=== PATIENT | female | born 2000 | race Two or more races ===

== ENCOUNTER 2025-05-31 23:29 | Emergency (ER) | payer OTHER ==
[~2025-05-31] VITALS: Ht 167.6 cm; Wt 78.0 kg
[2025-06-01] MEDS ORDERED: METHYLPREDNISOLONE SOD SUCC 125 MG VIAL IV ONE (00:45)
[2025-06-01] MEDS ORDERED: FAMOTIDINE/PF 20 MG in 0.9 % SODIUM CHLORIDE 8 ML IV PUSH ONE (00:45)
[2025-06-01] MEDS ORDERED: FAMOTIDINE/PF 20 MG/2 ML VIAL ONE ×2 (00:46→01:20)
[2025-06-01] MEDS ORDERED: METHYLPREDNISOLONE SOD SUCC 125 MG VIAL ONE (00:46)
[2025-06-01] MEDS ORDERED: DIPHENHYDRAMINE HCL 50 MG/ML VIAL 1ML ONE (00:46)
[2025-06-01] MEDS ORDERED: 0.9 % SODIUM CHLORIDE 1,000 ML IV ONE (01:00)
[2025-06-01] MEDS ORDERED: DIPHENHYDRAMINE HCL 50 MG/ML VIAL 1ML IV ONE (01:00)
[2025-06-01] MEDS ORDERED: FAMOTIDINE/PF 20 MG/2 ML VIAL IV PUSH STA (01:28)
[2025-06-01 01:35] LABS: BASO % 0.2 % (0.1-1.2); EOS # 0.00 (0.04-0.54); EOS % 0.0 % (0.7-7.0); LYMPH # 2.24 (1.18-3.74); LYMPH % 12.2 % (19.3-53.1); MEAN PLATELET VOLUME 11.30 fl (9.4-12.4); MONO # 0.76 (0.24-0.82); MONO % 4.2 % (4.7-12.5); NEUT # 15.21 (1.56-6.13); NEUT % 83.0 % (34.0-71.1); RED CELL DISTRIBUTION WIDTH 12.7 % (11.6-14.4)
[2025-06-01 01:52] LABS: ALT/SGPT 31.0 U/L (12-78); AST/SGOT 9.0 U/L (15-37); BILIRUBIN TOTAL 0.33 mg/dL (0.3-1.2); BUN CREA RATIO 22.0 (7.0-25.0); CREATININE SERUM 0.94 mg/dL (0.55-1.02); GFR 72.55; GLOBULINA 3.4 G/DL (2.4-3.5); GLUCOSE FASTING 94.0 mg/dL (65-100); OSMOLALITY SERUM 291.0 MOSM/KG (275-295)
[2025-06-01] MEDS ORDERED: ZYRTEC10 M3 PO (06:07)
[2025-06-01] MEDS ORDERED: MEDROLPACK PO (06:07)
[2025-06-01] MEDS ORDERED: FAMOTIDINE40 MG PO (06:08)
== END 2025-06-01 06:19 | disposition home or self-care (01) ==
LOC: ER 23:29
PROVIDERS: General Practice
DX: T65.811A Toxic effect of latex, accidental (unintentional), initial encounter (principal); L29.89 Other pruritus; Y92.89 Other specified places as the place of occurrence of the external cause